=== PATIENT | female | born 1975 ===

== ENCOUNTER 2017-08-27 06:32 | Emergency (ER) | payer OTHER ==
[~2017-08-27] VITALS: Ht 162.6 cm; Wt 75.3 kg
[~2017-08-27 06:32] MED LIST: ACYC400 PO; ALBU90OI INH; ALBU90OI61 INH; Amoxicillin500 MG PO; Armour Thyroid15 MG PO; Citalopram HBr10 MG PO; Mucinex600 MG PO; NAPR500 PO; PENVK250 PO; SPACE CHAMBER1 EACH MC
== END 2017-08-27 07:09 | disposition home or self-care (01) ==
LOC: ER 06:32
DX: R21 Rash and other nonspecific skin eruption (principal); F32.9 Major depressive disorder, single episode, unspecified; Z91.048 Other nonmedicinal substance allergy status; Z79.899 Other long term (current) drug therapy
CPT/HCPCS: 99281

== ENCOUNTER 2018-07-10 10:17 | Emergency (ER) | payer OTHER ==
[~2018-07-10] VITALS: Ht 160 cm; Wt 77.1 kg
[2018-07-10] MEDS ORDERED: OMEPRAZOLE MAGN20 MG PO (10:56)
[2018-07-10] MEDS ORDERED: FLUT1DIS2 INH (10:56)
[2018-07-10] MEDS ORDERED: ALBU90OI61 INH (10:56)
[2018-07-11] MEDS ORDERED: PRED10 PO (07:40)
[2018-07-11] MEDS ORDERED: NP THYROID90 MG PO (07:59)
[2018-07-11] MEDS ORDERED: VITAMIN D250000 UNIT PO (07:59)
[2018-07-11] MEDS ORDERED: OMEPRAZOLE MAGN20 MG PO (08:02)
== END 2018-07-10 11:40 | disposition home or self-care (01) ==
LOC: ER 10:17
DX: L23.7 Allergic contact dermatitis due to plants, except food (principal); Z88.8 Allergy status to other drugs, medicaments and biological substances; Z79.899 Other long term (current) drug therapy; E03.9 Hypothyroidism, unspecified; F32.9 Major depressive disorder, single episode, unspecified
CPT/HCPCS: 96372; 99283-25; J3301

== ENCOUNTER → 2018-10-29 | Outpatient (CLI) | payer OTHER ==
[~2018-10-29] MED LIST changes: +FLUT1DIS2 INH; +NP THYROID90 MG PO; +OMEPRAZOLE MAGN20 MG PO; +PRED10 PO; +VITAMIN D250000 UNIT PO
[2018-10-29 20:00] LABS: Free Thyroxine 0.63 ng/dL (0.70-1.60); Triiodothyronine, Free 2.53 pg/mL (2.18-3.98)
[2018-10-29 20:15] LABS: Thyroid Stimulating Hormone 14.3 uIU/mL (0.360-4.800)
== END | disposition home or self-care (01) ==
LOC: LAB 16:52 → LAB SHORT 16:52
PROVIDERS: Nurse Practitioner Family
DX: E55.9 Vitamin D deficiency, unspecified (principal); E03.9 Hypothyroidism, unspecified
CPT/HCPCS: 82306; 84439; 84443; 84481

== ENCOUNTER → 2019-11-22 | Outpatient (CLI) | payer OTHER ==
[2019-11-22 20:05] LABS: Free Thyroxine 0.83 ng/dL (0.70-1.60)
[2019-11-22 20:08] LABS: Thyroid Stimulating Hormone 0.613 uIU/mL (0.360-4.800); Triiodothyronine, Free 4.66 pg/mL (2.18-3.98)
== END | disposition home or self-care (01) ==
LOC: LAB SHORT 18:33 → LAB 18:33 → EDSTATUS 06-27 16:55 → LAB FUT 06-27 16:55
PROVIDERS: Nurse Practitioner Family
DX: E03.9 Hypothyroidism, unspecified (principal)
CPT/HCPCS: 84439; 84443; 84481

== ENCOUNTER → 2021-02-24 | Outpatient (CLI) | payer OTHER | LOC: LAB SHORT 16:30 → LAB 16:30 | DX: N39.0 Urinary tract infection, site not specified (principal) | CPT/HCPCS: 87086 ==